=== PATIENT | female | born 1995 | race Hispanic/Latino ===

== ENCOUNTER 2017-10-28 00:55 | Emergency (ER) | payer OTHER ==
[2017-10-28] MEDS ORDERED: LEVALBUTEROL 1.25 MG/3 ML NEB ONE (02:02)
[2017-10-28] MEDS ORDERED: ACETAMINOPHEN 500 MG TAB ONE (02:44)
--- NOTE | 2017-10-28 03:14 | EDPHYS ---
Physician Documentation [facility] Name: Alana Ferreira Age: 22 yrs Sex: Female : 1995 Arrival Date: 10/28/2017 Time: 00:59 Bed 26 Private MD: ED Physician Eric Ulrich HPI: 10/28 01:35 This 22 yrs old Female presents to ER via Ambulatory with complaints of Sore cp Throat, Cough, 18 WEEKS . 01:35 The patient presents with sore throat. cp 01:35 Associated signs and symptoms: Pertinent positives: cough, nausea, vomiting. cp 01:35 Patient reports finishing Augment antibiotic yesterday for strep throat but continues cp to have cough, sore throat, and ear pain. 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 - Social history:: Smoking status: Patient/guardian denies using tobacco. ROS: 01:40 Constitutional: Negative for body aches, chills, fever, poor PO intake. cp 01:40 Eyes: Negative for injury, pain, redness, and discharge. cp 01:40 ENT: Positive for ear pain, rhinorrhea, sore throat, Negative for drainage from ear(s), difficulty swallowing, difficulty handling secretions, hoarseness. 01:40 Neck: Negative for pain with movement, pain at rest, stiffness. 01:40 Cardiovascular: Negative for chest pain, edema, palpitations. 01:40 Respiratory: Positive for cough, "sounds productive", Negative for shortness of breath, wheezing. 01:40 Abdomen/GI: Negative for abdominal pain, nausea, vomiting, diarrhea, constipation, anorexia. 01:40 : Negative for urinary symptoms, vaginal bleeding, vaginal discharge, leakage of fluids. 01:40 Skin: Negative for cellulitis, rash. 01:40 Neuro: Negative for altered mental status, weakness. 01:40 All other systems are negative. Exam: 01:48 Constitutional: The patient appears in no acute distress, alert, awake, non-toxic, well cp developed, well nourished. 01:48 Head/Face: Normocephalic, atraumatic. Eyes: Pupils equal round and reactive to light, cp extra-ocular motions intact. Lids and lashes normal. Conjunctiva and sclera are non-icteric and not injected. Cornea within normal limits. Periorbital areas with no swelling, redness, or edema. 01:48 ENT: External ear(s): are unremarkable, Ear canal(s): are normal, clear, TM's: dullness, bilaterally, Nose: is normal, Mouth: Lips: moist, Oral mucosa: moist, Posterior pharynx: Airway: no evidence of obstruction, patent, Tonsils: with erythema, no enlargement, no exudate, Uvula: midline, swelling, is not appreciated, erythema, that is mild, exudate, is not appreciated, Voice: is normal. 01:48 Neck: ROM/movement: is normal, is supple, without pain, no range of motions limitations, no meningismus, no nuchal rigidity. 01:48 Chest/axilla: Inspection: normal, Palpation: is normal, no crepitus, no tenderness. 01:48 Cardiovascular: Rate: tachycardic, Rhythm: regular. 01:48 Respiratory: the patient does not display signs of respiratory distress, Respirations: normal, no use of accessory muscles, no retractions, no splinting, no tachypnea, labored breathing, is not present, Breath sounds: are clear throughout, no decreased breath sounds, no stridor, no wheezing. 01:48 Abdomen/GI: Inspection: gravid appearance, is noted, Palpation: abdomen is soft and non-tender, in all quadrants. 01:48 Back: pain, is absent, ROM is normal. 01:48 Skin: cellulitis, is not appreciated, no rash present. 01:48 Neuro: Orientation: to person, place, time \\T\\ situation. Mentation: is normal, Cerebellar function: is grossly normal, Motor: is normal, Sensation: no obvious gross deficits. Vital Signs: 01:17 BP 112 / 64; Pulse 118; Resp 20 S; Temp 98.3(O); Pulse Ox 100% on R/A; Weight 86.64 kg bb (R); Height 4 ft. 11 in. (149.86 cm) (R); Pain 8/10; 02:21 BP 106 / 60; Pulse 108; Resp 18; Pulse Ox 100% ; kb1 03:05 BP 98 / 68; Pulse 99; Resp 18; Pulse Ox 100% ; kb1 03:27 BP 100 / 60; Pulse 88; Resp 18 S; Temp 98.1(O); Pulse Ox 98% on R/A; bb 01:17 Body Mass Index 38.58 (86.64 kg, 149.86 cm) bb MDM: 01:12 Patient medically screened. cp 03:10 Data reviewed: vital signs, nurses notes, lab test result(s). cp 03:10 Counseling: I had a detailed discussion with the patient and/or guardian regarding: the cp historical points, exam findings, and any diagnostic results supporting the discharge/admit diagnosis, lab results, to return to the emergency department if symptoms worsen or persist or if there are any questions or concerns that arise at home. Response to treatment: the patient's symptoms have mildly improved after treatment, VSS. Nausea improved with meds. Will discharge to home for continued monitoring. 10/28 01:34 Order name: Strep 10/28 01:34 Order name: Influenza Screen (a \\T\\ B) 10/28 02:02 Order name: Urine Dipstick--Ancillary (enter results) [facility] 10/28 02:02 Order name: Urine --Ancillary (enter results) [facility] 10/28 03:03 Order name: Influenza Screen (A [facility] 10/28 03:03 Order name: Group A Streptococcus Rapid Sc [facility] 10/28 01:34 Order name: Urine Dipstick-Ancillary (obtain specimen); Complete Time: 02:08 cp 10/28 01:34 Order name: FHT's; Complete Time: 02:08 cp 10/28 02:54 Order name: PO challenge; Complete Time: 03:04 cp Administered Medications: 02:09 Drug: Xopenex 1.25 mg Route: Inhalation; kb1 02:19 Follow up: Response: No adverse reaction kb1 02:29 Drug: Tylenol 1000 mg Route: PO; kb1 03:26 Follow up: Response: No adverse reaction bb 03:04 Drug: Zofran 4 mg Route: PO; kb1 03:26 Follow up: Response: No adverse reaction bb Disposition: 19:28 Co-signature as Attending Physician, Eric Ulrich MD. cali Disposition: 10/28/17 03:14 Discharged to Home. Impression: Acute upper respiratory infection, unspecified. - Condition is Stable. - Discharge Instructions: Medicines During , Upper Respiratory Infection, Adult, Cool Mist Vaporizers. - Prescriptions for Albuterol Sulfate 90 mcg/actuation - inhale 1-2 puff by INHALATION route every 4-6 hours; 1 Inhaler. - Medication Reconciliation Form, Thank You Letter, Antibiotic Education, Prescription Opioid Use form. - Follow up: Private Physician; When: 2 - 3 days; Reason: Recheck today's complaints. - Problem is an ongoing problem. - Symptoms are unchanged. Signatures: Dispatcher [employer] EDElayne Ty RN RN bb Edis Neff PA PA cp Starr, Gregory, MD MD gs Brown, Kristina, RN RN kb1 Corrections: (The following items were deleted from the chart) 02:08 01:34 Urine Test ordered. cp kb1 :44 10/27 01:50 Constitutional: The patient appears in no acute distress, alert, awake, cp non-toxic, well developed, well nourished, cp 10/28 22:44 10/27 01:50 Head/Face: Normocephalic, atraumatic. cp cp 10/28 22:44 10/27 01:50 Eyes: Periorbital structures: appear normal, Pupils: equal, round, and cp reactive to light and accomodation, Extraocular movements: intact throughout, Conjunctiva: normal, no exudate, no injection, Sclera: no appreciated abnormality, Lids and lashes: appear normal, bilaterally, cp 10/28 22:44 10/27 01:50 ENT: External ear(s): are unremarkable, Ear canal(s): are normal, clear, cp TM's: bulging, is not appreciated, bilaterally, dullness, bilaterally, erythema, is not appreciated, bilaterally, Nose: is normal, Mouth: Lips: moist, Oral mucosa: moist, abscess, is not appreciated, Posterior pharynx: Airway: no evidence of obstruction, patent, Tonsils: with erythema, no exudate, Uvula: midline, swelling, is not appreciated, erythema, that is mild, exudate, is not appreciated, Voice: is normal, cp 10/28 22:44 10/27 01:50 Neck: ROM/movement: is normal, is supple, without pain, no range of motions cp limitations, no meningismus, no nuchal rigidity, cp 10/28 21:44 10/27 01:50 Chest/axilla: Inspection: normal, Palpation: is normal, no crepitus, no cp tenderness, cp 10/28 21:44 10/27 01:50 Cardiovascular: Rate: tachycardic, Rhythm: regular, cp cp 10/28 21:44 10/27 01:50 Respiratory: the patient does not display signs of respiratory distress, cp Respirations: normal, no use of accessory muscles, no retractions, no splinting, no tachypnea, labored breathing, is not present, Breath sounds: are clear throughout, no decreased breath sounds, no stridor, no wheezing, cp 10/28 21:44 10/27 01:50 Abdomen/GI: Inspection: gravid appearance, is noted, Palpation: abdomen is cp soft and non-tender, cp 10/28 21:44 10/27 01:50 Skin: cellulitis, is not appreciated, no rash present. cp cp
--- NOTE | 2017-10-28 03:14 | ER ---
Nurse's Notes [facility] Name: Alana Ferreira Age: 22 yrs Sex: Female : 1995 Arrival Date: 10/28/2017 Time: 00:59 Bed 26 Private MD: Diagnosis: Acute upper respiratory infection, unspecified Presentation: 10/28 01:14 Presenting complaint: Patient states: she was dx with strep about 10 days ago and put bb on antibiotics but is still having a sore throat, cough, ear ache, headache, and has vomited x 3 for 2 days, denies abdominal pain, cramping or vaginal bleeding. Pt is 18 weeks . Transition of care: patient was not received from another setting of care. Onset of symptoms was October 17, 2017. Care prior to arrival: None. 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 - Social history:: Smoking status: Patient/guardian denies using tobacco. Screenin:27 Abuse screen: Denies threats or abuse. Nutritional screening: No deficits noted. kb1 Tuberculosis screening: No symptoms or risk factors identified. Fall Risk None identified. Assessment: 01:27 General: Appears in no apparent distress. Behavior is calm, cooperative. Pain: kb1 Complains of pain in ears, throat. Neuro: Level of Consciousness is awake, alert, obeys commands, Oriented to person, place, time, situation. Cardiovascular: Patient's skin is warm and dry. Respiratory: Airway is patent Respiratory effort is even, unlabored, Respiratory pattern is regular, symmetrical, Breath sounds are clear. GI: Reports vomiting. : No signs and/or symptoms were reported regarding the genitourinary system. EENT: Throat is pink. 02:12 Reassessment: FHTs - 158. kb1 02:21 Reassessment: Patient appears in no apparent distress at this time. Patient and/or kb1 family updated on plan of care and expected duration. Pain level reassessed. Patient is alert, oriented x 3, equal unlabored respirations, skin warm/dry/pink. 03:05 Reassessment: Patient appears in no apparent distress at this time. Fluids given for PO kb1 challenge. 03:25 Reassessment: Patient and/or family updated on plan of care and expected duration. Pain bb level reassessed. Patient is alert, oriented x 3, equal unlabored respirations, skin warm/dry/pink. pt verbalized understanding of and agrees to plan of care discharge instructions given pt ambulated with steady gait to exit accompanied by spouse. Vital Signs: 01:17 BP 112 / 64; Pulse 118; Resp 20 S; Temp 98.3(O); Pulse Ox 100% on R/A; Weight 86.64 kg bb (R); Height 4 ft. 11 in. (149.86 cm) (R); Pain 8/10; 02:21 BP 106 / 60; Pulse 108; Resp 18; Pulse Ox 100% ; kb1 03:05 BP 98 / 68; Pulse 99; Resp 18; Pulse Ox 100% ; kb1 03:27 BP 100 / 60; Pulse 88; Resp 18 S; Temp 98.1(O); Pulse Ox 98% on R/A; bb 01:17 Body Mass Index 38.58 (86.64 kg, 149.86 cm) ED Course: 00:59 Patient arrived in ED. al2 01:09 Selam Banks, RACHEAL is Primary Nurse. kb1 01:09 Eric Ulrich MD is Attending Physician. gs 01:11 Edis Neff PA is PHCP. cp 01:16 Triage completed. bb 01:17 Arm band placed on Patient placed in an exam room, on a stretcher, on pulse oximetry. bb Family accompanied patient. 01:27 Patient has correct armband on for positive identification. Bed in low position. Call kb1 light in reach. 01:27 No provider procedures requiring assistance completed. Patient did not have IV access kb1 during this emergency room visit. 02:09 Strep Sent. kb1 02:09 Influenza Screen (a \T\ B) Sent. kb1 Administered Medications: 02:09 Drug: Xopenex 1.25 mg Route: Inhalation; kb1 02:19 Follow up: Response: No adverse reaction kb1 02:29 Drug: Tylenol 1000 mg Route: PO; kb1 03:26 Follow up: Response: No adverse reaction bb 03:04 Drug: Zofran 4 mg Route: PO; kb1 03:26 Follow up: Response: No adverse reaction bb Outcome: 03:14 Discharge ordered by . frances 03:27 Discharged to home ambulatory, with family. bb 03:27 Condition: stable 03:27 Discharge instructions given to patient, Instructed on discharge instructions, follow up and referral plans. medication usage, Demonstrated understanding of instructions, follow-up care, medications, Prescriptions given X 1. 03:28 Patient left the ED. bb Signatures: Elayne Sam RN RN bb Edis Neff PA PA cp Starr, Gregory, MD MD gs Love, Angelica al2 Brown, Kristina, RN RN kb1
[2017-10-28] MEDS ORDERED: ONDANSETRON 4 MG (ODT) TAB ONE (03:22)
[2017-10-28 03:59] LABS: Urine Blood NEGATIVE (NEG); Urine Glucose NEGATIVE (NEG); Urine Protein NEGATIVE (NEG)
== END 2017-10-28 03:28 | disposition home or self-care (01) ==
LOC: ER 00:55
DX: J06.9 Acute upper respiratory infection, unspecified (principal); Z3A.18 18 weeks gestation of pregnancy
CPT/HCPCS: 81003; 81025; 87070; 87081; 87804; 99284

== ENCOUNTER 2017-11-02 07:52 | Emergency (ER) | payer OTHER ==
--- NOTE | 2017-11-02 09:05 | EDPHYS ---
Physician Documentation [facility] Name: Alana Ferreira Age: 22 yrs Sex: Female : 1995 Arrival Date: 11/02/2017 Time: 07:55 Bed 6 Private MD: ED Physician Jasper Patrick HPI: 11/02 08:49 This 22 yrs old Female presents to ER via Ambulatory with complaints of Sore kb Throat. 08:49 The patient presents with sore throat. The patient describes throat pain as constant. kb Onset: The symptoms/episode began/occurred last night. Severity of symptoms: At their worst the symptoms were mild, moderate, in the emergency department the symptoms are unchanged. Modifying factors: The symptoms are alleviated by nothing, the symptoms are aggravated by swallowing, Patient's oral intake status: good Denies contact with similarly ill indivduals. Associated signs and symptoms: Pertinent positives: cough, Sore throat. The patient has not experienced similar symptoms in the past. The patient has not recently seen a physician. 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 - Social history:: Smoking status: Patient/guardian denies using tobacco. ROS: 08:49 Constitutional: Negative for fever, chills, and weight loss, Neck: Negative for injury, kb pain, and swelling, Cardiovascular: Negative for chest pain, palpitations, and edema, Abdomen/GI: Negative for abdominal pain, nausea, vomiting, diarrhea, and constipation, Back: Negative for injury and pain, : Negative for injury, bleeding, discharge, and swelling, MS/Extremity: Negative for injury and deformity, Skin: Negative for injury, rash, and discoloration, Neuro: Negative for headache, weakness, numbness, tingling, and seizure. 08:49 ENT: Positive for sore throat. 08:49 Respiratory: Positive for cough, with no reported sputum, Negative for dyspnea on exertion, hemoptysis, orthopnea, pleurisy, shortness of breath, sputum production, wheezing. Exam: 08:50 Constitutional: This is a well developed, well nourished patient who is awake, alert, kb and in no acute distress. Head/Face: Normocephalic, atraumatic. ENT: Nares patent. No nasal discharge, no septal abnormalities noted. Tympanic membranes are normal and external auditory canals are clear. Oropharynx with no redness, swelling, or masses, exudates, or evidence of obstruction, uvula midline. Mucous membranes moist. Neck: Trachea midline, no thyromegaly or masses palpated, and no cervical lymphadenopathy. Supple, full range of motion without nuchal rigidity, or vertebral point tenderness. No Meningismus. Chest/axilla: Normal chest wall appearance and motion. Nontender with no deformity. No lesions are appreciated. Cardiovascular: Regular rate and rhythm with a normal S1 and S2. No gallops, murmurs, or rubs. Normal PMI, no JVD. No pulse deficits. Respiratory: Lungs have equal breath sounds bilaterally, clear to auscultation and percussion. No rales, rhonchi or wheezes noted. No increased work of breathing, no retractions or nasal flaring. Abdomen/GI: Soft, non-tender, with normal bowel sounds. No distension or tympany. No guarding or rebound. No evidence of tenderness throughout. Back: No spinal tenderness. No costovertebral tenderness. Full range of motion. Skin: Warm, dry with normal turgor. Normal color with no rashes, no lesions, and no evidence of cellulitis. MS/ Extremity: Pulses equal, no cyanosis. Neurovascular intact. Full, normal range of motion. Neuro: Awake and alert, GCS 15, oriented to person, place, time, and situation. Cranial nerves II-XII grossly intact. Motor strength 5/5 in all extremities. Sensory grossly intact. Cerebellar exam normal. Normal gait. Vital Signs: 08:02 BP 129 / 78; Pulse 102; Resp 14; Temp 98.4(TE); Pulse Ox 99% on R/A; Weight 86.18 kg; ss Height 4 ft. 11 in. (149.86 cm); Pain 10/10; 08:02 Body Mass Index 38.37 (86.18 kg, 149.86 cm) ss MDM: 08:01 Patient medically screened. kb 08:48 Data reviewed: vital signs, nurses notes. Data interpreted: Pulse oximetry: on room air kb is 99 %. Interpretation: normal. 09:04 Counseling: I had a detailed discussion with the patient and/or guardian regarding: the kb historical points, exam findings, and any diagnostic results supporting the discharge/admit diagnosis, lab results, the need for outpatient follow up, a family practitioner, to return to the emergency department if symptoms worsen or persist or if there are any questions or concerns that arise at home. 11/02 08:17 Order name: Flu kb 11/02 08:17 Order name: Strep kb 11/02 08:56 Order name: Group A Streptococcus Rapid Sc; Complete Time: 09:00 EDMS 11/02 08:56 Order name: Influenza Screen (A ; Complete Time: 09:00 EDMS Administered Medications: No medications were administered Disposition: :24 Co-signature as Attending Physician, Jasper Patrick MD. rn Disposition: 11/02/17 09:05 Discharged to Home. Impression: Acute pharyngitis. - Condition is Stable. - Discharge Instructions: Pharyngitis, Ylrm-[id number], Viral Infections, [id number], Sore Throat, Gmvt-[id number]. - Medication Reconciliation Form, Thank You Letter, Antibiotic Education, Prescription Opioid Use form. - Work release form (11/02/17 09:16). sg - Follow up: Emergency Department; When: As needed; Reason: Worsening of condition. Follow up: Private Physician; When: 2 - 3 days; Reason: Recheck today's complaints, Continuance of care, Re-evaluation by your physician. Signatures: Dispatcher [employer] EDID Lluú Conklin, EYEWEAR MANUFACTURING TECH-C EYEWEAR MANUFACTURING TECH-Ckb Jasper Patrick MD MD rn Smirch, Shelby RN RN Ana Cristina Lua RN RN Bud Hay RN sg
--- NOTE | 2017-11-02 09:05 | ER ---
Nurse's Notes [facility] Name: Alana Ferreira Age: 22 yrs Sex: Female : 1995 Arrival Date: 11/02/2017 Time: 07:55 Bed 6 Private MD: Diagnosis: Acute pharyngitis Presentation: 11/02 08:00 Presenting complaint: Patient states: diagnosed with strep and completed round of antibiotics, but reports sore throat and difficulty swallowing that began again last night. Transition of care: patient was not received from another setting of care. Onset of symptoms was November 01, 2017. Care prior to arrival: None. 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 - Social history:: Smoking status: Patient/guardian denies using tobacco. Vital Signs: 08:02 BP 129 / 78; Pulse 102; Resp 14; Temp 98.4(TE); Pulse Ox 99% on R/A; Weight 86.18 kg; ss Height 4 ft. 11 in. (149.86 cm); Pain 10/10; 08:02 Body Mass Index 38.37 (86.18 kg, 149.86 cm) ED Course: 07:55 Patient arrived in ED. as 07:58 Lulú Conklin FNP-C [facility]. kb 07:58 Jasper Patrick MD is Attending Physician. kb 08:01 Triage completed. ss 08:02 Arm band placed on right wrist. ss 08:04 Bud Hay, RN is Primary Nurse. sg 08:26 Flu and/or RSV swab sent to lab. Strep swab sent to lab. sg Administered Medications: No medications were administered Outcome: 09:05 Discharge ordered by . kb 09:15 Patient left the ED. ph Signatures: Lulú Conklin FNP-C FNP-CkBud Cunningham, RN RN Mary Ferreira Shelby, RN RN Lua, Ana Cristina, RN RN ph
== END 2017-11-02 09:15 | disposition home or self-care (01) ==
LOC: ER 07:52
DX: J02.9 Acute pharyngitis, unspecified (principal); Z3A.18 18 weeks gestation of pregnancy
CPT/HCPCS: 87070; 87081; 87804; 99282

== ENCOUNTER 2018-06-03 13:00 | Emergency (ER) | payer OTHER, SELFPAY ==
[2018-06-03] MEDS ORDERED: KETOROLAC 30 MG/ML INJ ONE (13:58)
--- NOTE | 2018-06-03 14:05 | RAD REPORT ---
EXAM DESCRIPTION: Felix Partida (2 Views)06/03/2018 1:56 pm CLINICAL HISTORY: Chest pain COMPARISON: 2016 FINDINGS: The lungs appear clear of acute infiltrate. The heart is normal size IMPRESSION: No acute abnormalities displayed
--- NOTE | 2018-06-03 14:16 | EDPHYS ---
Physician Documentation [facility] Name: Alana Ferreira Age: 22 yrs Sex: Female : 1995 Arrival Date: 06/03/2018 Time: 13:03 Bed 15 Private MD: None, None ED Physician Edis Busch HPI: 06/03 13:36 This 22 yrs old Female presents to ER via Ambulatory with complaints of snw Breathing Difficulty. 13:36 The patient has shortness of breath at rest. Onset: The symptoms/episode began/occurred snw suddenly, last night, and became persistent. Duration: The symptoms are continuous, and are unchanged since they started. The patient's shortness of breath has no apparent modifying factors. Associated signs and symptoms: The patient has no apparent associated signs or symptoms. Severity of symptoms: At their worst the symptoms were moderate. The patient has not experienced similar symptoms in the past. Vaginal 2 months ago, + control implant to left upper arm. right sided chest pain with inspiration since last pm. 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 - Social history:: Smoking status: Patient/guardian denies using tobacco. - Ebola Screening: : No symptoms or risks identified at this time. ROS: 13:36 Constitutional: Negative for fever, chills, and weight loss, Eyes: Negative for injury, snw pain, redness, and discharge, ENT: Negative for injury, pain, and discharge, Neck: Negative for injury, pain, and swelling, Respiratory: Negative for shortness of breath, cough, wheezing, and pleuritic chest pain, Abdomen/GI: Negative for abdominal pain, nausea, vomiting, diarrhea, and constipation, Back: Negative for injury and pain, : Negative for injury, bleeding, discharge, and swelling, MS/Extremity: Negative for injury and deformity, Skin: Negative for injury, rash, and discoloration, Neuro: Negative for headache, weakness, numbness, tingling, and seizure. 13:36 Cardiovascular: Positive for right sided chest pain with deep inspirations. Exam: 13:35 Constitutional: This is a well developed, well nourished patient who is awake, alert, snw and in no acute distress. Head/Face: Normocephalic, atraumatic. Eyes: Pupils equal round and reactive to light, extra-ocular motions intact. Lids and lashes normal. Conjunctiva and sclera are non-icteric and not injected. Cornea within normal limits. Periorbital areas with no swelling, redness, or edema. ENT: Nares patent. No nasal discharge, no septal abnormalities noted. Tympanic membranes are normal and external auditory canals are clear. Oropharynx with no redness, swelling, or masses, exudates, or evidence of obstruction, uvula midline. Mucous membranes moist. Neck: Trachea midline, no thyromegaly or masses palpated, and no cervical lymphadenopathy. Supple, full range of motion without nuchal rigidity, or vertebral point tenderness. No Meningismus. Cardiovascular: Regular rate and rhythm with a normal S1 and S2. No gallops, murmurs, or rubs. Normal PMI, no JVD. No pulse deficits. Respiratory: Lungs have equal breath sounds bilaterally, clear to auscultation and percussion. No rales, rhonchi or wheezes noted. No increased work of breathing, no retractions or nasal flaring. Abdomen/GI: Soft, non-tender, with normal bowel sounds. No distension or tympany. No guarding or rebound. No evidence of tenderness throughout. Back: No spinal tenderness. No costovertebral tenderness. Full range of motion. Skin: Warm, dry with normal turgor. Normal color with no rashes, no lesions, and no evidence of cellulitis. MS/ Extremity: Pulses equal, no cyanosis. Neurovascular intact. Full, normal range of motion. Neuro: Awake and alert, GCS 15, oriented to person, place, time, and situation. Cranial nerves II-XII grossly intact. Motor strength 5/5 in all extremities. Sensory grossly intact. Cerebellar exam normal. Normal gait. Psych: Awake, alert, with orientation to person, place and time. Behavior, mood, and affect are within normal limits. 13:35 Chest/axilla: Inspection: normal, Palpation: no acute changes, Axilla: are normal. Vital Signs: 13:09 BP 110 / 68; Pulse 87; Resp 14 S; Temp 99.0(TE); Pulse Ox 100% on R/A; Weight 92.53 kg aa5 (R); Height 4 ft. 11 in. (149.86 cm) (R); Pain 8/10; 14:38 BP 109 / 68; Pulse 85; Resp 16; Pulse Ox 100% ; Pain 5/10; jl7 13:09 Body Mass Index 41.20 (92.53 kg, 149.86 cm) aa5 MDM: 13:20 Patient medically screened. nisa 13:39 The patient's pulmonary embolism risk score was calculated as follows: No Risks (0 snw Pts). Data reviewed: vital signs, nurses notes. Data interpreted: Pulse oximetry: on room air is 100 %. Interpretation: normal. Counseling: I had a detailed discussion with the patient and/or guardian regarding: the historical points, exam findings, and any diagnostic results supporting the discharge/admit diagnosis. Special discussion: Based on the patient's history, exam, and Dx evaluation, there is no indication for emergent intervention or inpatient Tx. It is understood by the patient/guardian that if the Sx's persist or worsen they need to return immediately for re-evaluation. Based on the history and exam findings, there is no indication for further emergent testing or inpatient evaluation. I discussed with the patient/guardian the need to see the primary care provider for further evaluation of the symptoms. 06/03 14:05 Order name: Urine Dipstick--Ancillary (enter results); Complete Time: 14:34 bd 06/03 14:05 Order name: Urine --Ancillary (enter results); Complete Time: 14:34 bd 06/03 13:34 Order name: Urine Test (obtain specimen); Complete Time: 13:59 bp 06/03 13:34 Order name: Chest Pa And Lat (2 Views) XRAY; Complete Time: 14:09 bp 06/03 14:40 Order name: EKG; Complete Time: 15:11 snw 06/03 14:40 Order name: EKG - Nurse/Tech; Complete Time: 14:48 snw Administered Medications: 13:52 Drug: TORadol 60 mg Route: IM; Site: right deltoid; ls4 14:38 Follow up: Response: No adverse reaction; Pain is decreased jl7 Disposition: 17:57 Co-signature as Attending Physician, Edis Busch MD I agree with the assessment and nisa plan of care. Disposition: 06/03/18 14:16 Discharged to Home. Impression: Chest pain on breathing. - Condition is Stable. - Discharge Instructions: Chest Wall Pain, Intestinal Gas and Gas Pains, Pediatric. - Prescriptions for Gas- X - take 1 capsule by ORAL route 3 times per day; 1 box. Diclofenac Sodium 75 mg Oral Tablet Sustained Release - take 1 tablet by ORAL route 2 times per day; 30 tablet. Miralax 17 gram/dose Oral - take 1 packet by ORAL route once daily dilute powder in 8 ounces of water or juice; 1 box. - Medication Reconciliation Form, Thank You Letter, Antibiotic Education, Prescription Opioid Use, Work release form form. - Follow up: Emergency Department; When: As needed; Reason: Worsening of condition. Follow up: Private Physician; When: 1 - 2 days; Reason: Recheck today's complaints, Continuance of care, Re-evaluation by your physician. Signatures: Dispatcher [employer] EDMS Edis Busch MD MD cha Therrien, Shelly, EMBEDDED NURSE-C EMBEDDED NURSE-Csnw Ashly Otero, RN RN aa5 Mushtaq Cespedes RN RN jl7 Dre Augilar, RN RN bp Aby Haney, RN RN ls4 Corrections: (The following items were deleted from the chart) 14:48 14:16 06/03/2018 14:16 Discharged to Home. Impression: Chest pain on breathing. jl7 Condition is Stable. Forms are Medication Reconciliation Form, Thank You Letter, Antibiotic Education, Prescription Opioid Use. Follow up: Emergency Department; When: As needed; Reason: Worsening of condition. Follow up: Private Physician; When: 1 - 2 days; Reason: Recheck today's complaints, Continuance of care, Re-evaluation by your physician. snw
--- NOTE | 2018-06-03 14:16 | ER ---
Nurse's Notes [facility] Name: Alana Ferreira Age: 22 yrs Sex: Female : 1995 Arrival Date: 06/03/2018 Time: 13:03 Bed 15 Private MD: None, None Diagnosis: Chest pain on breathing Presentation: 06/03 13:08 Presenting complaint: Patient states: SOB that began last night. Pt states "every time aa5 I take a breath my chest hurts". pt denies cough, denies congestion. Transition of care: patient was not received from another setting of care. Onset of symptoms was May 2018. Risk Assessment: Do you want to hurt yourself or someone else? Patient reports no desire to harm self or others. Initial Sepsis Screen: Does the patient meet any 2 criteria? No. Patient's initial sepsis screen is negative. Does the patient have a suspected source of infection? No. Patient's initial sepsis screen is negative. Care prior to arrival: None. 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 - Social history:: Smoking status: Patient/guardian denies using tobacco. - Ebola Screening: : No symptoms or risks identified at this time. Screenin:20 Abuse screen: Denies threats or abuse. Denies injuries from another. Nutritional jl7 screening: No deficits noted. Tuberculosis screening: No symptoms or risk factors identified. Fall Risk None identified. Assessment: 13:20 General: Appears in no apparent distress. uncomfortable, Behavior is calm, cooperative, jl7 appropriate for age. Pain: Complains of pain in mid-sternal area Pain does not radiate. Pain currently is 8 out of 10 on a pain scale. Quality of pain is described as burning. Neuro: Level of Consciousness is awake, alert, obeys commands, Oriented to person, place, time, situation. Cardiovascular: Rhythm is regular. Respiratory: Airway is patent Respiratory effort is even, unlabored, shallow, Respiratory pattern is regular, symmetrical, Breath sounds are clear bilaterally. Derm: Skin is pink, warm \\T\\ dry. 14:38 Reassessment: Patient states feeling better. Patient states symptoms have improved. jl7 Vital Signs: 13:09 BP 110 / 68; Pulse 87; Resp 14 S; Temp 99.0(TE); Pulse Ox 100% on R/A; Weight 92.53 kg aa5 (R); Height 4 ft. 11 in. (149.86 cm) (R); Pain 8/10; 14:38 BP 109 / 68; Pulse 85; Resp 16; Pulse Ox 100% ; Pain 5/10; jl7 13:09 Body Mass Index 41.20 (92.53 kg, 149.86 cm) aa5 ED Course: 13:03 Patient arrived in ED. mr 13:03 None, None is Private Physician. mr 13:08 Arm band placed on. aa5 13:09 Triage completed. aa5 13:10 Mushtaq Cespedes, RN is Primary Nurse. jl7 13:17 Ada Morrow FNP-C is [facility]. snw 13:17 Edis Busch MD is Attending Physician. snw 13:20 Patient has correct armband on for positive identification. Bed in low position. Call jl7 light in reach. Side rails up X 1. Pulse ox on. NIBP on. 13:55 Chest Pa And Lat (2 Views) XRAY In Process Unspecified. EDMS 13:59 Urine collected: clean catch specimen, clear. [facility] 14:46 No provider procedures requiring assistance completed. Patient did not have IV access jl7 during this emergency room visit. 14:48 EKG done, by senior technical architect. reviewed by Ada NORRIS. jl7 Administered Medications: 13:52 Drug: TORadol 60 mg Route: IM; Site: right deltoid; ls4 14:38 Follow up: Response: No adverse reaction; Pain is decreased jl7 Outcome: 14:16 Discharge ordered by . snw 14:46 Discharged to home ambulatory. jl7 14:46 Condition: stable 14:46 Discharge instructions given to patient, Instructed on discharge instructions, follow up and referral plans. medication usage, Demonstrated understanding of instructions, follow-up care, medications, Prescriptions given X 3. 14:46 Patient left the ED. jl7 Signatures: Dispatcher [employer] EDMS Ada Morrow FNP-C SUPERVISOR [employer]-Csnw Roderick Georgie mr OteroAshly pineda, RN RN lorie5 Addie Ferreira Jahala, RN RN jl7 Aby Haney RN RN ls4 Corrections: (The following items were deleted from the chart) 14:49 14:48 Patient left the ED. carly carroll
[2018-06-03 14:33] LABS: Urine Blood TRACE (NEG); Urine Glucose NEGATIVE (NEG); Urine Protein NEGATIVE (NEG); Urine Specific Gravity >1.030 (1.005-1.030)
--- NOTE | 2018-06-03 16:19 | EKG ---
Test Date: 2018-06-03 Test Time: 14:45:51 Diet Counselor: KAROLINA MEASUREMENT RESULTS: Intervals: Rate: 66 NH: 148 QRSD: 88 QT: 406 QTc: 425 [place]: P: 23 NH: 148 QRS: 65 T: 40 INTERPRETIVE STATEMENTS: Sinus rhythm with marked sinus arrhythmia Otherwise normal ECG Compared to ECG 04/28/2016 01:40:36 Sinus tachycardia no longer present Electronically Signed On 06-03-18 16:19:00 CDT by Wyatt Nguyen
== END 2018-06-03 14:48 | disposition home or self-care (01) ==
LOC: ER 13:00
DX: R07.1 Chest pain on breathing (principal)
CPT/HCPCS: 71046; 81003; 81025; 93005; 96372; 99284

== ENCOUNTER 2018-06-13 18:32 | Emergency (ER) | payer OTHER, SELFPAY ==
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
== END 2018-06-13 19:35 | disposition home or self-care (01) ==
LOC: ER 18:32
DX: S00.11XA Contusion of right eyelid and periocular area, initial encounter (principal); Y04.8XXA Assault by other bodily force, initial encounter; Y93.9 Activity, unspecified; Y92.009 Unspecified place in unspecified non-institutional (private) residence as the place of occurrence of the external cause
CPT/HCPCS: 70450; 70486; 76377; 99283